=== PATIENT | female | born 1960 | race Caucasian/White ===

== ENCOUNTER 2022-08-21 09:27 | Day surgery (SDC) | payer OTHER ==
[~2022-08-21] VITALS: Ht 157.5 cm; Wt 88.5 kg
[~2022-08-21 09:27] MED LIST: AMLO-258 PO; HYDR25TA2 PO; OMEP20 PO; SODIUM CHLORIDE 0.9% 1,000 ML IV ONE; VALS40TA4 PO
[2022-08-21] MEDS ORDERED: PROPOFOL 1% 20 ML VIAL IVP ONE (09:28)
[2022-08-21] MEDS ORDERED: SODIUM CHLORIDE 0.9% 1,000 ML ONE (10:07)
[2022-08-21 10:59] LABS: COVID AG,FIA SOURCE NASAL SWAB
== END 2022-08-21 13:05 | disposition home or self-care (01) ==
LOC: SURGERY 09:27
PROVIDERS: ATTEND Internal Medicine Gastroenterology
DX: K29.50 Unspecified chronic gastritis without bleeding (principal); K44.9 Diaphragmatic hernia without obstruction or gangrene; I10 Essential (primary) hypertension; E78.5 Hyperlipidemia, unspecified; K21.9 Gastro-esophageal reflux disease without esophagitis; Z98.890 Other specified postprocedural states; Z79.899 Other long term (current) drug therapy; Z20.822 Contact with and (suspected) exposure to COVID-19
CPT/HCPCS: 43239; 87426; C1769; J2704; J7030; C9803